=== PATIENT | male | born 1945 | race Caucasian/White ===

== ENCOUNTER → 2019-06-30 13:57 | Outpatient (CLI) | payer MEDICARE, SELFPAY ==
--- NOTE | 2019-06-30 | DI.MRI.S_ITS ---
PROCEDURE: MR CERVICAL SPINE WO CON INDICATIONS: Bilateral arm pain TECHNIQUE: Noncontrast sagittal T1 spin echo and T2 fast spin echo, sagittal STIR, foraminal oblique sagittal T2 fast spin echo, and axial gradient echo or T2 fast spin echo through the cervical spine. COMPARISON: None. FINDINGS: Image quality: Excellent. Alignment and Curvature: Trace retrolisthesis of C3 on C4, and grade 1 retrolisthesis of C5 on C6 Bone Marrow: No fracture. Multilevel degenerative endplate sclerosis and spurring. Diffuse facet arthropathy. Spinal Cord: Visualized spinal cord has normal size and signal. No cerebellar tonsillar herniation. Paraspinous Soft Tissues: No paravertebral masses. Prevertebral soft tissues are normal in thickness. C2-C3: Normal appearance. C3-C4: Mild canal narrowing. Severe right foraminal stenosis with nerve root compression. Moderate to severe left foraminal stenosis with nerve root compression. C4-C5: Mild canal narrowing. Severe right foraminal stenosis with nerve root compression. Mild left foraminal stenosis. C5-C6: Moderate canal stenosis, right greater than left. Severe right foraminal stenosis or nerve root compression. Severe left foraminal stenosis or nerve root compression. C6-C7: Mild canal narrowing. Severe right foraminal stenosis and nerve root compression. Moderate to severe left foraminal stenosis with nerve root compression. C7-T1: Mild canal narrowing. Moderate right foraminal stenosis with nerve root compression. Moderate right foraminal stenosis with nerve root compression IMPRESSION: Moderate C5-C6 canal stenosis Numerous bilateral foraminal stenoses as detailed above by spinal level Multilevel spondylolisthesis as above. Dictated by: Raudel Victoria M.D. on 06/30/2019 at 16:17 Approved by: Raudel Victoria M.D. on 06/30/2019 at 16:26
== END ==
PROVIDERS: PCP Internal Medicine; Referring Provider Internal Medicine; Visit Provider Internal Medicine
DX: M47.22 Other spondylosis with radiculopathy, cervical region (principal); M79.601 Pain in right arm; M79.602 Pain in left arm; M48.03 Spinal stenosis, cervicothoracic region; M48.02 Spinal stenosis, cervical region; M43.12 Spondylolisthesis, cervical region
CPT/HCPCS: 72141

== ENCOUNTER → 2020-09-06 12:49 | Outpatient (CLI) | payer OTHER, SELFPAY ==
[2020-09-06 14:06] LABS: Alanine Aminotransferase 17 IU/L (<50); Aspartate Aminotransferase 24 IU/L (17-59)
== END ==
PROVIDERS: PCP Internal Medicine; Referring Provider Internal Medicine; Visit Provider Internal Medicine
DX: B35.1 Tinea unguium (principal)
CPT/HCPCS: 36415; 84450; 84460

== ENCOUNTER → 2022-09-17 13:56 | Outpatient (CLI) | payer MEDICARE, SELFPAY ==
--- NOTE | 2022-09-17 14:01 | DI.RAD.S_ITS ---
PROCEDURE: XR LUMBAR SPINE MIN 4V INDICATIONS: BACK PAIN TECHNIQUE: 5 views of the lumbar spine were acquired, including bilateral oblique views. COMPARISON: None. FINDINGS: Bones: 5 nonrib-bearing vertebrae are present. There is mild, approximately 6 millimeters of L1-L2 retrolisthesis.. No vertebral body compression fractures. No suspicious bony lesions. Severe L1-L2, L2-L3 and L4-L5 degenerative disc disease. Moderate L3-L4 degenerative disc disease. Mild L5-S1 degenerative disc disease. Moderate L2-L3, L3-L4, L4-L5 and L5-S1 facet hypertrophy. Mild L1-L2 facet hypertrophy. Soft tissues: Overlying bowel gas pattern is normal. No suspicious soft tissue calcifications. Oblique images: No pars defects. IMPRESSION: 1. Multilevel degenerative disc disease. 2. Multilevel facet arthropathy. 3. No fracture. No acute osseous lesion. If symptoms and/or clinical suspicion for pathology persists, evaluation with MRI should be considered for further assessment. Dictated by: Penny Carrillo MD, PhD on 09/17/2022 at 14:36 Approved by: Penny Carrillo MD, PhD on 09/17/2022 at 14:37
--- NOTE | 2022-09-17 14:01 | DI.RAD.S_ITS ---
PROCEDURE: XR CERVICAL SPINE 4V OR 5V INDICATIONS: NECK PAIN TECHNIQUE: 5 views of the cervical spine acquired. COMPARISON: None. FINDINGS: Bones: No fractures or dislocations to the T1 level. Oblique images are under-oblique and the neural foramen cannot be evaluated. Severe C3-C4 , C5-C6 and C6-C7. Mild facet hypertrophy noted throughout the cervical spine. Severe bilateral C5-C6 and C6-C7 uncovertebral hypertrophy. Moderate bilateral C3-C4 uncovertebral hypertrophy. Soft tissues: No prevertebral soft tissue swelling. IMPRESSION: No fracture. No acute osseous lesion. If symptoms and/or clinical suspicion for pathology persists, evaluation with MRI should be considered for further assessment. Dictated by: Penny Carrillo MD, PhD on 09/17/2022 at 14:28 Approved by: Penny Carrillo MD, PhD on 09/17/2022 at 14:30
== END ==
PROVIDERS: PCP Student in an Organized Health Care Education/Training Program; Referring Provider Anesthesiology; Visit Provider Anesthesiology
DX: M51.36 Other intervertebral disc degeneration, lumbar region (principal); M51.37 Other intervertebral disc degeneration, lumbosacral region; M47.816 Spondylosis without myelopathy or radiculopathy, lumbar region; M47.817 Spondylosis without myelopathy or radiculopathy, lumbosacral region; M48.02 Spinal stenosis, cervical region; M47.812 Spondylosis without myelopathy or radiculopathy, cervical region; M50.30 Other cervical disc degeneration, unspecified cervical region; M54.9 Dorsalgia, unspecified
CPT/HCPCS: 72050; 72110; 99214